=== PATIENT | male | born 1935 | race Caucasian/White ===

== ENCOUNTER → 2019-05-26 | Outpatient (CLI) | payer OTHER, MEDICAID ==
[2019-05-26 11:48] LABS: BASO # 0.1 x10^3/uL (0.0-0.2); BASO % 1 % (0-3); EOS # 0.1 x10^3/uL (0.0-0.7); EOS % 2 % (0-3); HEMATOCRIT 36.5 % (39.0-53.0); HEMOGLOBIN 12.2 g/dL (13.0-17.5); LYMPH # 0.9 x10^3/uL (1.0-4.8); LYMPH % 14 % (24-48); MEAN CORPUSCULAR HEMOGLOBIN 31 pg (25-35); MEAN CORPUSCULAR HGB CONC 33 g/dL (31-37); MEAN CORPUSCULAR VOLUME 93 fL (79-100); MONO # 0.6 x10^3/uL (0.0-1.1); MONO % 10 % (0-9); NEUT # 4.7 x10^3uL (1.8-7.7); NEUT % 73 % (31-73); PLATELET COUNT 144 x10^3/uL (140-400); RED BLOOD COUNT 3.93 x10^6/uL (4.30-5.70); RED CELL DISTRIBUTION WIDTH 17.3 % (11.5-14.5); WHITE BLOOD COUNT 6.4 x10^3/uL (4.0-11.0)
[2019-05-26 13:04] LABS: SEDIMENTATION RATE 25 (0-15)
== END | disposition home or self-care (01) ==
LOC: LAB 10:38
PROVIDERS: ATTEND Podiatrist Foot & Ankle Surgery
DX: L03.116 Cellulitis of left lower limb (principal)
CPT/HCPCS: 36415; 85025; 85651; 86140

== ENCOUNTER → 2019-06-02 | Outpatient (CLI) | payer OTHER, MEDICAID ==
[2019-06-02 12:54] LABS: BASO % 1 % (0-3); EOS # 0.1 x10^3/uL (0.0-0.7); EOS % 2 % (0-3); HEMATOCRIT 40.2 % (39.0-53.0); HEMOGLOBIN 13.1 g/dL (13.0-17.5); LYMPH % 16 % (24-48); MEAN CORPUSCULAR HEMOGLOBIN 30 pg (25-35); MEAN CORPUSCULAR HGB CONC 33 g/dL (31-37); MEAN CORPUSCULAR VOLUME 93 fL (79-100); MONO # 0.6 x10^3/uL (0.0-1.1); MONO % 10 % (0-9); NEUT # 4.5 x10^3uL (1.8-7.7); NEUT % 71 % (31-73); PLATELET COUNT 145 x10^3/uL (140-400); RED BLOOD COUNT 4.34 x10^6/uL (4.30-5.70); RED CELL DISTRIBUTION WIDTH 17.5 % (11.5-14.5); WHITE BLOOD COUNT 6.3 x10^3/uL (4.0-11.0)
[2019-06-02 13:59] LABS: SEDIMENTATION RATE 30 (0-15)
== END | disposition home or self-care (01) ==
LOC: LAB 11:38
PROVIDERS: ATTEND Podiatrist Foot & Ankle Surgery
DX: L03.116 Cellulitis of left lower limb (principal)
CPT/HCPCS: 36415; 85025; 85651; 86140

== ENCOUNTER → 2019-06-04 | Outpatient (CLI) | payer OTHER, MEDICAID ==
--- NOTE | 2019-06-04 14:04 | RAD ---
EXAM: Bilateral lower extremity venous Doppler sonogram. HISTORY: Pain and swelling. TECHNIQUE: Lara scale and color Doppler sonographic evaluation of the bilateral lower extremity veins with spectral waveform analysis was performed. FINDINGS: There is normal color flow, normal compressibility and there are normal spectral waveforms in the common femoral, superficial femoral, popliteal, posterior tibial and greater saphenous veins. IMPRESSION: No Doppler evidence of lower extremity deep venous thrombosis. Electronically signed by: Annabella Naranjo MD (06/04/2019 2:01 PM) [facility] [place]
== END | disposition home or self-care (01) ==
LOC: US 13:07
PROVIDERS: ATTEND Podiatrist Foot & Ankle Surgery
DX: Z03.89 Encounter for observation for other suspected diseases and conditions ruled out (principal)
CPT/HCPCS: 93970

== ENCOUNTER 2020-04-08 23:56 | Emergency (ER) | payer OTHER, MEDICAID ==
[~2020-04-08] VITALS: Ht 167.6 cm; Wt 92.0 kg
--- NOTE | 2020-04-09 00:18 | EKG ---
[address] [address] Test Date: 2020-04-09 Test Time: 00:12:45 Pat Name: JANUARY CORDERO Department: Room: Gender: M Monitor Tech: : 1935 Requested By: CONNER VELASQUEZ Order Number: [id number] Reading MD: Measurements Intervals [place] Rate: 128 P: -24 SD: 104 QRS: -28 QRSD: 184 T: 156 QT: 338 QTc: 497 Interpretive Statements SINUS TACHYCARDIA CONSIDER WPW, TYPE B LEFTWARD AXIS T ABNORMALITY IN LATERAL LEADS ABNORMAL ECG RI6.02 No previous ECG available for comparison
--- NOTE | 2020-04-09 00:19 | RAD ---
INDICATION: Reason: Left side drooping, weakness, confusion / Spl. Instructions: / History: COMPARISON: None. TECHNIQUE: Axial CT images obtained through the head without intravenous contrast. One or more of the following individualized dose reduction techniques were utilized for this examinat ion: 1. Automated exposure control; 2. Adjustment of the mA and/or kV according to patient size; 3 . Use of iterative reconstruction technique. FINDINGS: No intracranial hemorrhage. No midline shift. Basal cisterns patents. Ventricles and sulci are globally prominent. No acute osseous abnormality. Orbits and paranasal sinuses unremarkable. Scattered foci of low attenuation within the white matter. IMPRESSION: 1. No acute intracranial hemorrhage. 2. Scattered regions of low attenuation within the white matter. Non-specific in nature but frequen tly secondary to small vessel ischemic disease. If there is high concern for acute causes clinically MRI could better assess acuity. 3. Prominence of ventricles and sulci which is frequently secondary to age related volume loss. Repo rt called to the ER at 12:12 AM on date of exam Electronically signed by: Emmanuel Del Toro MD (04/09/2020 12:16 AM) [id number]
--- NOTE | 2020-04-09 00:27 | PHYS DOC ---
General Adult EDM: Chief Complaint: ALTERED MENTAL STATUS HPI: HPI: Patient is a 84-year-old male who presents via EMS from home. Patient was using the restroom when his slumped over. Per EMS arrival to thought he had a slight facial droop on the left. Patient was maintaining his own airway but nonres ponsive. Patient's last known normal was 2335. No known history of any focal deficits. EMS was just across the street and did not have time to check her blood sugar but on ED arrival stated that her blood glucose reading was "low" this means it was less than 25. Patient was given D50 while being taken to the scanner, patient shortly woke up. 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 Patient has a history of insulin-dependent diabetes and states he has he hasn't been eating very much recently, which he thinks is possibly secondary to his recent surgery. Patient is now awake and alert, no focal deficits. Review of Systems: Review of Systems: Constitutional: Denies fever or chills Eyes: Denies change in visual acuity HENT: Denies nasal congestion or sore throat Respiratory: Denies cough or shortness of breath Cardiovascular: Denies chest pain or edema GI: Denies abdominal pain, nausea, vomiting, bloody stools or diarrhea : Denies dysuria Musculoskeletal: Denies back pain or joint pain Integument: Denies rash Neurologic: Denies headache, focal weakness or sensory changes Endocrine: Denies polyuria or polydipsia Lymphatic: Denies swollen glands Psychiatric: Denies depression or anxiety Physical Exam: PE: Constitutional: Well developed, well nourished, no acute distress, non-toxic leoncio earance. [] HENT: Normocephalic, atraumatic, bilateral external ears normal, oropharynx moist, no oral exudates, nose wrapped with dressing, bandages clean dry and intact Eyes: PERRLA, EOMI, conjunctiva normal, no discharge. [] Neck: Normal range of motion, no tenderness, supple, no stridor. [] Cardiovascular:Heart rate regular rhythm, no murmur [] Lungs & Thorax: Bilateral breath sounds clear to auscultation [] Abdomen: Bowel sounds normal, soft, no tenderness, no masses, no pulsatile masses. [] Skin: Warm, dry, no erythema, no rash. [] Back: No tenderness, no CVA tenderness. [] Extremities: No tenderness, no cyanosis, no clubbing, ROM intact, no edema. [] Bilateral lower extremities wrapped, bandages clean dry and intact Neurologic: Alert and oriented X 3, normal motor function, normal sensory f unction, no focal deficits noted. [] Psychologic: Affect normal, judgement normal, mood normal. [] EKG: EKG: Tachycardic, rate 128, leftward axis deviation appears to be sinus tachycardia Radiology/Procedures: Radiology/Procedures: INDICATION: Reason: Left side drooping, weakness, confusion / Spl. Instructions: / History: COMPARISON: None. TECHNIQUE: Axial CT images obtained through the head without intravenous contrast. One or more of the following individualized dose reduction techniques were utilized for this examination: 1. Automated exposure control; 2. Adjustment of the mA and/or kV according to patient size; 3. Use of iterative reconstruction technique. FINDINGS: No intracranial hemorrhage. No midline shift. Basal cisterns patents. Ventricles and sulci are globally prominent. No acute osseous abnormality. Orbits and paranasal sinuses unremarkable. Scattered foci of low attenuation within the white matter. IMPRESSION: 1. No acute intracranial hemorrhage. 2. Scattered regions of low attenuation within the white matter. Non-specific in nature but frequently secondary to small vessel ischemic disease. If there is high concern for acute causes clinically MRI could better assess acuity. 3. Prominence of ventricles and sulci which is frequently secondary to age related volume loss. Report called to the ER at 12:12 AM on date of exam [] Heart Score: Risk Factors: Risk Factors: DM, Current or recent (<one month) smoker, HTN, HLP, family history of CAD, obesity. Risk Scores: Score 0 - 3: 2.5% MACE over next 6 weeks - Discharge Home Score 4 - 6: 20.3% MACE over next 6 weeks - Admit for Clinical Observation Score 7 - 10: 72.7% MACE over next 6 weeks - Early Invasive Strategies Course & Med Decision Making: Course & Med Decision Making Pertinent Labs and Imaging studies reviewed. (See chart for details) Elevated creatinine of 3.2, states the patient has a history of renal insufficiency but does not know baseline creatinine Patient quickly regained alertness after D 50 dextrose resulting in a blood sugar of 162, was given ice cream, sandwich, applesauce, juice in the emergency department and observed, repeat blood sugar after about 30 minutes 42 Patient is having runs of V. tach for 5-15 beats, then having A. fib with a heart rate about 120, also having PVCs and runs of sinus bradycardia with what appears to be a first-degree block. Patient denies his defibrillator firing. [] Dragon Disclaimer: Dragon Disclaimer: This electronic medical record was generated, in whole or in part, using a voice recognition dictation system. Departure Departure: Impression: Primary Impression: Hypoglycemia due to insulin Additional Impressions: Pacemaker failure Renal insufficiency Disposition: 02 DC/TRF OTHER SHORT TERM HOS Condition: GUARDED Referrals: ANMOL VELEZ (PCP) CONNER VELASQUEZ MD Apr 09, 2020 00:27
[2020-04-09 00:57] LABS: CALCIUM 9.1 mg/dL (8.5-10.1); CREATININE 3.6 mg/dL (0.7-1.3); GFR 16.2
[2020-04-09 01:02] LABS: HEMOGLOBIN 14.5 g/dL (13.0-17.5); RED BLOOD COUNT 4.74 x10^6/uL (4.30-5.70); RED CELL DISTRIBUTION WIDTH 20.2 % (11.5-14.5); WHITE BLOOD COUNT 5.5 x10^3/uL (4.0-11.0)
[2020-04-09 01:36] LABS: PHOSPHORUS 4.8 mg/dL (2.6-4.7)
[2020-04-09 02:23] LABS: BACTERIA,URINE FEW /HPF (0-FEW); BILIRUBIN,URINE NEG (NEG); CLARITY,URINE HAZY; COLOR,URINE YELLOW; GLUCOSE,URINE NEG (NEG); NITRITE,URINE NEG (NEG); SQUAMOUS EPITHELIAL CELL,UR FEW /LPF; UROBILINOGEN,URINE 0.2 mg/dL (0.2 mg/dL); WBC,URINE 0 /HPF (0-4)
[2020-04-09 02:24] LABS: AMORPHOUS SEDIMENT,UR PRESENT /HPF
[2020-04-09] MEDS ORDERED: DEXTROSE 50% 25 GM / 50ML DISP.SYRIN. IV ONE ×3 (02:30→05:45)
[2020-04-09] MEDS ORDERED: IV DEXTROSE 10% 1,000 ML IV ONE (02:30)
[2020-04-09 04:19] VITALS: BP 101/51
== END 2020-04-09 04:40 | disposition short-term general hospital (02) ==
LOC: ER 23:56
DX: E16.0 Drug-induced hypoglycemia without coma (principal); T82.119A Breakdown (mechanical) of unspecified cardiac electronic device, initial encounter; T38.3X5A Adverse effect of insulin and oral hypoglycemic [antidiabetic] drugs, initial encounter; N28.9 Disorder of kidney and ureter, unspecified; Y92.89 Other specified places as the place of occurrence of the external cause
CPT/HCPCS: 36415; 70450; 80048; 81001; 82947; 83735; 83880; 84100; 84484; 85027; 85610; 85730; 93005; 96365; 96366; 96376; 99285-25